=== PATIENT | female | born 2000 | race Caucasian/White ===

== ENCOUNTER 2021-02-05 16:41 | Emergency (ER) | payer OTHER ==
[~2021-02-05] VITALS: Ht 160 cm; Wt 79.8 kg
[2021-02-05] MEDS ORDERED: PRENA1 CHEW TA1.4 MG (17:15)
== END 2021-02-05 22:01 | disposition home or self-care (01) ==
LOC: ER 16:41
DX: O46.92 Antepartum hemorrhage, unspecified, second trimester (principal)

== ENCOUNTER 2021-02-11 21:53 | Emergency (ER) | payer OTHER ==
[~2021-02-11] VITALS: Ht 157.5 cm; Wt 74.4 kg
[~2021-02-11 21:53] MED LIST: PRENA1 CHEW TA1.4 MG
== END 2021-02-12 01:18 | disposition home or self-care (01) ==
LOC: ER 21:53
DX: O46.8X1 Other antepartum hemorrhage, first trimester (principal); Z3A.09 9 weeks gestation of pregnancy

== ENCOUNTER 2021-05-11 20:19 | Emergency (ER) | payer OTHER ==
[~2021-05-11] VITALS: Ht 157.5 cm; Wt 74.4 kg
[2021-05-11] MEDS ORDERED: MACRODANTIN100 M1 PO (22:14)
== END 2021-05-11 22:35 | disposition home or self-care (01) ==
LOC: ER 20:19
DX: N39.0 Urinary tract infection, site not specified (principal)

== ENCOUNTER 2021-05-22 08:38 | Emergency (ER) | payer OTHER ==
[~2021-05-22] VITALS: Ht 157.5 cm; Wt 73.5 kg
[~2021-05-22 08:38] MED LIST changes: +MACRODANTIN100 M1 PO
== END 2021-05-22 12:20 | disposition home or self-care (01) ==
LOC: ER 08:38
DX: O20.8 Other hemorrhage in early pregnancy (principal); O36.80X0 Pregnancy with inconclusive fetal viability, not applicable or unspecified; O26.851 Spotting complicating pregnancy, first trimester; Z3A.13 13 weeks gestation of pregnancy

== ENCOUNTER 2021-07-12 07:53 | Outpatient (CLI) | payer OTHER | END 2021-07-12 09:28 | disposition home or self-care (01) | LOC: PRENATAL 07:53 | PROVIDERS: ATTEND Obstetrics & Gynecology Maternal & Fetal Medicine | DX: O35.0XX1 Maternal care for (suspected) central nervous system malformation in fetus, fetus 1 (principal); O35.3XX1 Maternal care for (suspected) damage to fetus from viral disease in mother, fetus 1; O98.512 Other viral diseases complicating pregnancy, second trimester; Z36.89 Encounter for other specified antenatal screening; Z3A.21 21 weeks gestation of pregnancy ==

== ENCOUNTER 2021-08-19 22:03 | Emergency (ER) | payer OTHER ==
[~2021-08-19] VITALS: Ht 157.5 cm; Wt 74.8 kg
== END 2021-08-20 | disposition home or self-care (01) ==
LOC: ER 22:03
DX: B34.9 Viral infection, unspecified (principal); N39.0 Urinary tract infection, site not specified

== ENCOUNTER 2021-09-16 13:46 | Inpatient (IN) | payer OTHER ==
[~2021-09-16] VITALS: Ht 157.5 cm; Wt 70.8 kg
== END 2021-09-20 14:03 | disposition home or self-care (01) | DRG 833 ==
LOC: OBS/DEL 13:46 → LDR 19:44
PROVIDERS: ADMIT Obstetrics & Gynecology; ATTEND Obstetrics & Gynecology
PROC: 4A1HXCZ Monitoring of Products of Conception, Cardiac Rate, External Approach (ICD-10-PCS; principal; 2021-09-16)
PROC: BY4FZZZ Ultrasonography of Third Trimester, Single Fetus (ICD-10-PCS; 2021-09-16)
PROC: BY4FZZZ Ultrasonography of Third Trimester, Single Fetus (ICD-10-PCS; 2021-09-18)
DX: O60.03 Preterm labor without delivery, third trimester (principal); Z3A.30 30 weeks gestation of pregnancy; Z20.822 Contact with and (suspected) exposure to COVID-19; O42.013 Preterm premature rupture of membranes, onset of labor within 24 hours of rupture, third trimester

== ENCOUNTER 2021-10-30 23:43 | Inpatient (IN) | payer OTHER ==
[~2021-10-30] VITALS: Ht 170.2 cm; Wt 0.5 kg
[2021-10-31] MEDS ORDERED: PRENATAL TABLE1 EAC1 PO (01:01)
== END 2021-11-03 13:49 | disposition home or self-care (01) | DRG 805 ==
LOC: LDR 23:43 → OB/GYN 11-01 13:26
PROVIDERS: ADMIT Obstetrics & Gynecology; ATTEND Obstetrics & Gynecology
PROC: 4A1HXCZ Monitoring of Products of Conception, Cardiac Rate, External Approach (ICD-10-PCS; 2021-10-30)
PROC: 10E0XZZ Delivery of Products of Conception, External Approach (ICD-10-PCS; principal; 2021-11-01)
PROC: 0HQ9XZZ Repair Perineum Skin, External Approach (ICD-10-PCS; 2021-11-01)
DX: O70.0 First degree perineal laceration during delivery (principal); O60.14X0 Preterm labor third trimester with preterm delivery third trimester, not applicable or unspecified; Z37.0 Single live birth; Z3A.36 36 weeks gestation of pregnancy; Z20.822 Contact with and (suspected) exposure to COVID-19